=== PATIENT | female | born 1975 | race Hispanic/Latino ===

== ENCOUNTER 2019-02-11 05:09 | Emergency (ER) | payer OTHER ==
[2019-02-11 05:09] VITALS: BMI 23.1
[2019-02-11 05:37] VITALS: TEMP 97.3
--- NOTE | 2019-02-11 05:44 | ED PDOC ---
Arrival/HPI - General Chief Complaint: Lower Extremity Problem/Injury Time Seen by Provider: 02/11/19 05:13 Historian: Patient - History of Present Illness Narrative History of Present Illness (Text): 02/11/19 05:41 43 year old female, whose past medical history includes lumbar herniated disc, presents to the emergency complaining of discomfort to area of left lower leg. Patient is unsure if possibly may have injured her leg from past yoga excercises. Patient denies any blunt trauma or recent injury.Patient is able to ambulate without difficulty. Patient denies any fevers, chills, headache, dizziness, chest pain, shortness of breath,back pain, cough, diaphoresis, abdominal pain, nausea, vomiting, diarrhea, neck pain, or any other complaint. Time/Duration: Prior to Arrival Symptom Onset: Gradual Symptom Course: Unchanged Activities at Onset: Light Context: Home Past Medical History - Provider Review Nursing Documentation Reviewed: Yes - Infectious Disease Hx of Infectious Diseases: None - Tetanus Immunization Tetanus Immunization: Up to Date - Cardiac Hx Cardiac Disorders: No - Pulmonary Hx Respiratory Disorders: No - Neurological Hx Neurological Disorder: No - HEENT Other/Comment: uvitis. iritis - Renal Hx Renal Disorder: No - Endocrine/Metabolic Hx Endocrine Disorders: No - Hematological/Oncological Hx Blood Disorders: No - Integumentary Hx Cellulitis: Yes - Musculoskeletal/Rheumatological Hx Musculoskeletal Disorders: No - Gastrointestinal Hx Gastrointestinal Disorders: No - Genitourinary/Gynecological Hx Genitourinary Disorders: No - Psychiatric Hx Psychophysiologic Disorder: No Hx Substance Use: Yes - Surgical History Other/Comment: wisdom teeth extraction - Anesthesia Hx Anesthesia: Yes Hx Anesthesia Reactions: No Hx Malignant Hyperthermia: No Family/Social History - Physician Review Nursing Documentation Reviewed: Yes Family/Social History: No Known Family HX Smoking Status: Heavy Smoker > 10 Cigarettes Daily Hx Alcohol Use: No Hx Substance Use: Yes Substance used: [place] Allergies/Home Meds Allergies/Adverse Reactions: Allergies contact metal agent Allergy (Verified 02/11/19 05:21) URTICARIA strawberry Allergy (Verified 02/11/19 05:21) RASH Home Medications: Home Meds Medication Instructions Recorded Confirmed PrednisoLONE 1% [Pred Forte 1% 1 drop BOTHEYES DAILY 02/11/19 02/11/19 Opht Susp] Review of Systems - Physician Review All systems were reviewed & negative as marked: Yes - Review of Systems Constitutional: absent: Fevers, Night Sweats Respiratory: absent: SOB, Cough Cardiovascular: absent: Chest Pain Gastrointestinal: absent: Abdominal Pain, Diarrhea, Nausea, Vomiting Musculoskeletal: Arthralgias (Ankle pain). absent: Neck Pain Neurological: absent: Headache, Dizziness Physical Exam Vital Signs Reviewed: Yes Vital Signs Temp Pulse Resp BP Pulse Ox 02/11/19 05:36 97.3 F L 62 18 113/72 95 Temperature: Afebrile Blood Pressure: Normal Pulse: Regular Respiratory Rate: Normal Appearance: Positive for: Well-Appearing, Non-Toxic, Comfortable Pain Distress: None Mental Status: Positive for: Alert and Oriented X 3 - Systems Exam Neck: Present: Normal Range of Motion Respiratory/Chest: Present: Clear to Auscultation, Good Air Exchange. No: Respiratory Distress, Accessory Muscle Use Cardiovascular: Present: Regular Rate and Rhythm, Normal S1, S2. No: Murmurs Back: Present: Normal Inspection. No: Midline Tenderness Upper Extremity: Present: Normal Inspection. No: Cyanosis, Edema Lower Extremity: Present: Normal Inspection, Normal ROM, Tenderness (Tenderness to palpation medially area left lower leg slighty above ankle border), Ne urovascularly Intact. No: Edema, CALF TENDERNESS, Erythema, Deformity Neurological: Present: GCS=15, CN II-XII Intact, Speech Normal, Motor Func Grossly Intact, Normal Sensory Function Skin: Present: Warm, Dry, Normal Color. No: Rashes Psychiatric: Present: Alert, Oriented x 3, Normal Insight, Normal Concentration Medical Decision Making ED Course and Treatment: 02/11/19 05:47 Impression: 43 year old female presents with left ankle and leg pain. Plan: -- X-ray left ankle -- X-ray left Tib- Fib -- US Left lower extremity -- Reassess and disposition Prior Visits: Notes and results from previous visits were reviewed. Progress Notes: 02/11/19 07:05 Case endorsed to /pending labs/reassess/final disposition - RAD Interpretation Radiology Orders: 02/11/19 05:33 ANKLE LEFT 3 VIEWS ROUTINE [RAD] Stat 02/11/19 05:34 TIBIA FIBULA LEFT [RAD] Stat 02/11/19 05:35 DUPLEX LOWER EXTRM VEIN LEFT [US] Stat - Scribe Statement The provider has reviewed the documentation as recorded by the Amol Pérez Provider Scribe Attestation: All medical record entries made by the Amol were at my direction and personally dictated by me. I have reviewed the chart and agree that the record accurately reflects my personal performance of the history, physical exam, medical decision making, and the department course for this patient. I have also personally directed, reviewed, and agree with the discharge instructions and disposition. Disposition/Present on Arrival - Present on Arrival Any Indicators Present on Arrival: No History of DVT/PE: No History of Uncontrolled Diabetes: No History of Decub. Ulcer: No History Surgical Site Infection Following: None - Disposition Have Diagnosis and Disposition been Completed?: No Diagnosis: Leg pain, left Disposition Time: 07:00 Patient Problems: Current Active Problems Problem Status Onset Leg pain, left Acute Condition: STABLE Referrals: Lei Steven, [Primary Care Provider] - Follow up with primary Forms: [employer] (Chinese)
--- NOTE | 2019-02-11 07:18 | ED PDOC ---
Physical Exam Vital Signs Temp Pulse Resp BP Pulse Ox 02/11/19 05:36 97.3 F L 62 18 113/72 95 Medical Decision Making ED Course and Treatment: 02/11/19 07:18 Case endorsed to me by Dr. Snow pending labs, x-rays of ankle and Tib-fib, Duplex left LE US, and reassess/disposition. PROCEDURE: Radiographs of the left tibia and fibula. Dictator : Garrick Carter MD Report Date : 02/11/2019 08:11:48 IMPRESSION: Unremarkable radiographs of the left tibia and fibula. PROCEDURE: Left Ankle Radiographs. Dictator : Garrick Carter MD Report Date : 02/11/2019 08:04:01 IMPRESSION: Normal left ankle radiographs. Duplex Left LE Ultrasound Impression: negative for left DVT. PROCEDURE: CT Lumbar Spine without contrast Dictator : Ofelia Herrera MD Report Date : 02/11/2019 11:05:43 IMPRESSION: 1. No acute fracture, spondylolysis or spondylolisthesis. 2. Status post right hemilaminectomy at L4-5, desiccated disc with a diffuse posterior disc bulge without central spinal canal stenosis. Mild bilateral facet arthropathy contribute to severe neural foraminal narrowing. 3. At L5-S1 diffuse posterior disc bulge with broad-based central disc protrusion without central spinal canal stenosis. No neural foraminal narrowing. 4. Additional comments as described above. 02/11/19 11:20 On re-evaluation, patient feels better and is in no acute distress. I have discussed the results and plan with the patient, who expresses understanding. Patient in agreement with plan to be discharged home. Patient is stable for discharge. Patient was instructed to follow up with physician or return if symptoms worsen or new concerning symptoms arise. - RAD Interpretation Radiology Orders: 02/11/19 05:33 ANKLE LEFT 3 VIEWS ROUTINE [RAD] Stat 02/11/19 05:34 TIBIA FIBULA LEFT [RAD] Stat 02/11/19 05:35 DUPLEX LOWER EXTRM VEIN LEFT [US] Stat - Medication Orders Current Medication Orders: Discontinued Medications Tramadol HCl (Ultram) 50 mg PO STAT STA Stop: 02/11/19 05:54 Last Admin: 02/11/19 06:14 Dose: 50 mg MAR Pain Assessment Document 02/11/19 06:14 KV (Rec: 02/11/19 06:14 KV [id number]) Pain Reassessment Is this a pain reassessment? No Sleep Is patient sleeping during reassessment? No Presence of Pain Presence of Pain Yes Pain Scale Used Protocol: PSCALES Pain Scale Used Numeric Location Left, Right or Bilateral Left Upper or Lower Lower Pain Location Body Site Leg Description Description Constant Intensity of Pain at present 9 - Scribe Statement The provider has reviewed the documentation as recorded by the Amol Lopez Provider Scribe Attestation: All medical record entries made by the Scribe were at my direction and personally dictated by me. I have reviewed the chart and agree that the record accurately reflects my personal performance of the history, physical exam, medical decision making, and the department course for this patient. I have also personally directed, reviewed, and agree with the discharge instructions and disposition. Disposition/Present on Arrival - Present on Arrival Any Indicators Present on Arrival: No History of DVT/PE: No History of Uncontrolled Diabetes: No Urinary Catheter: No History of Decub. Ulcer: No History Surgical Site Infection Following: None - Disposition Have Diagnosis and Disposition been Completed?: Yes Diagnosis: Leg pain, left Disposition: HOME/ ROUTINE Disposition Time: 11:00 Condition: IMPROVED Discharge Instructions (ExitCare): Muscle and Bone Pain (DC) Additional Instructions: AZAM REDMOND, thank you for letting us take care of you today. The emergency medical care you received today was directed at your acute symptoms. If you were prescribed any medication, please fill it and take as directed. It may take several days for your symptoms to resolve. Return to the Emergency Department if your symptoms worsen, do not improve, or if you have any other problems. Please contact your doctor or call one of the physicians/clinics you have been referred to that are listed on the Patient Visit Information form that is included in your discharge packet. Bring any paperwork you were given at discharge with you along with any medications you are taking to your follow up visit. Our treatment cannot replace ongoing medical care by a primary care provider outside of the emergency department. Thank you for allowing the [facility] team to be part of your care today. Follow up with Dr. Steven this week for re-evaluation and further management. Prescriptions: traMADol [Ultram] 50 mg PO Q8 PRN #15 tab PRN Reason: Pain, Severe (8-10) Referrals: Lei Steven, [Primary Care Provider] - Follow up with primary Forms: [employer] (Maori)
[2019-02-11 07:57] LABS: HEMOGLOBIN 12.2 g/dL (12.0-16.0); MEAN CELL VOLUME 87.1 fl (80.0-105.0); MEAN CORPUSCULAR HEMOGLOBIN 27.7 pg (25.0-35.0); MEAN CORPUSCULAR HGB CONC 31.8 g/dl (31.0-37.0); MEAN PLATELET VOLUME 10.3 fl (7.0-11.0); RBC 4.41 10^6/uL (3.5-6.1); RED CELL DISTRIBUTION WIDTH 13.6 % (11.5-14.5)
--- NOTE | 2019-02-11 08:07 | RAD ---
Date of service: 02/11/2019 PROCEDURE: Left Ankle Radiographs. HISTORY: pain?injury COMPARISON: None available. TECHNIQUE: 3 views obtained. FINDINGS: BONES: Normal. No fracture. JOINTS: Normal. No osteoarthritis. Ankle mortise maintained. Talar dome intact SOFT TISSUES: Normal. OTHER FINDINGS: None. IMPRESSION: Normal left ankle radiographs.
[2019-02-11 08:12] LABS: ALB/GLOB RATIO 1.1 (1.1-1.8); ALBUMIN 3.9 g/dL (3.0-4.8); ALT/SGPT 10 U/L (7-56); AST/SGOT 29 U/L (14-36); BLOOD UREA NITROGEN 12 mg/dL (7-21); CALCIUM 9.2 mg/dL (8.4-10.5); GFR NON-AFRICAN AMERICAN > 60; URIC ACID 2.9 mg/dL (2.5-6.2)
--- NOTE | 2019-02-11 08:15 | RAD ---
Date of service: 02/11/2019 PROCEDURE: Radiographs of the left tibia and fibula. HISTORY: pain?injury COMPARISON: None available. TECHNIQUE: Frontal and lateral views obtained. FINDINGS: BONES: No fracture or destructive lesion. JOINT SPACES: Unremarkable. OTHER FINDINGS: None. IMPRESSION: Unremarkable radiographs of the left tibia and fibula.
[2019-02-11 10:38] VITALS: RESP 18
--- NOTE | 2019-02-11 10:40 | US ---
PROCEDURE: Left lower extremity venous US HISTORY: Leg pain and swelling. Evaluate for DVT. PHYSICIAN(S): Samy Wheeler MD. TECHNIQUE: Duplex sonography and color-flow Doppler with graded compression were used to evaluate the deep venous system of the left lower extremity. FINDINGS: The visualized deep venous system of the left lower extremity is sonographically normal and compressible. Normal wave forms and augmentation are seen. There is no sonographic evidence for deep venous thrombosis in the visualized segments of the left lower extremity. IMPRESSION: 1. No sonographic evidence for deep venous thrombosis in the visualized segments of the left lower extremity.
--- NOTE | 2019-02-11 11:09 | CT ---
Date of service: 02/11/2019 PROCEDURE: CT Lumbar Spine without contrast HISTORY: Low back pain with left radiculopathy COMPARISON: None available. TECHNIQUE: Axial computed tomography images were obtained of the lumbar spine without the use of intravenous contrast. Coronal and sagittal reformatted images were created and reviewed. Radiation dose: Total exam DLP = 891.49 mGy-cm. This CT exam was performed using one or more of the following dose reduction techniques: Automated exposure control, adjustment of the mA and/or kV according to patient size, and/or use of iterative reconstruction technique. FINDINGS: VERTEBRAE: Is normal alignment of the lumbar vertebral bodies there is normal lumbar lordosis there is no acute fracture spondylolysis or spondylolisthesis. There is mild diffuse bone demineralization. DISCS/SPINAL CANAL/NEURAL FORAMINA: Evaluation of the discs and spinal canal is limited on noncontrast CT examination. Allowing for this, L1-2: No large disc herniation neural foraminal or spinal canal stenosis. L2-3: Mild posterior disc bulge and ligamentum flavum infolding without central spinal canal stenosis. Mild bilateral facet arthropathy contribute to moderate neural foraminal narrowing worse on the right. L3-4: Diffuse posterior disc bulge without central spinal canal stenosis. Mild bilateral facet arthropathy contribute to mild neural foraminal narrowing. L4-5: Desiccated disc with vacuum phenomenon. Postsurgical changes of right hemilaminectomy. There is a diffuse posterior disc bulge which indents the ventral thecal sac without spinal canal stenosis. Mild bilateral facet arthropathy contribute to severe neural foraminal narrowing. L5-S1: Diffuse posterior disc bulge with broad-based central disc protrusion without central spinal canal stenosis. No neural foraminal narrowing. PARASPINAL SOFT TISSUES: The paraspinous soft tissues are normal. OTHER FINDINGS: There is a 4 mm nonobstructing stone in the lower pole of the left kidney. IMPRESSION: 1. No acute fracture, spondylolysis or spondylolisthesis. 2. Status post right hemilaminectomy at L4-5, desiccated disc with a diffuse posterior disc bulge without central spinal canal stenosis. Mild bilateral facet arthropathy contribute to severe neural foraminal narrowing. 3. At L5-S1 diffuse posterior disc bulge with broad-based central disc protrusion without central spinal canal stenosis. No neural foraminal narrowing. 4. Additional comments as described above.
[2019-02-11 11:38] VITALS: BP 112/74; PULSE 78; O2SAT 98
== END 2019-02-11 11:38 | disposition home or self-care (01) ==
LOC: ED 05:09
DX: M79.605 Pain in left leg (principal); F17.210 Nicotine dependence, cigarettes, uncomplicated

== ENCOUNTER 2019-03-24 11:49 | Emergency (ER) | payer OTHER ==
[2019-03-24 11:59] VITALS: BMI 30.5
[2019-03-24 12:02] VITALS: BP 115/67; PULSE 85; RESP 18; TEMP 98.3; O2SAT 95
--- NOTE | 2019-03-24 12:32 | ED PDOC ---
Arrival/HPI - General Chief Complaint: Lower Extremity Problem/Injury Time Seen by Provider: 03/24/19 11:52 Historian: Patient - History of Present Illness Narrative History of Present Illness (Text): 43 year old female with PMH of depression presents to the ED c/o left lower extremity pain x 2 months. Patient states the pain is sharp located primarily to her medial left ankle and lower leg that worsens today with associated erythema, swelling, and warm. Has been taking Tramadol without relief. She has received multiple imaging studies from her orthopedic doctor Dr. Blevins including MRI of the left ankle performed on March 18. MRI revealed thrombophlebitis and ankle sprain. Patient called her primary doctor Dr. Steven this morning who recommended she come to the emergency department for evaluation. Patient is able to bear weight and ambulate on the extremity although with pain. Denies fever, chills, numbness, paresthesias, weakness, open wounds, nausea, vomiting, dizziness, pain elsewhere, headache, chest pain, shortness of breath, or any other associated symptoms. Past Medical History - Provider Review Nursing Documentation Reviewed: Yes Primary Care Provider: Lei Steven - Infectious Disease Hx of Infectious Diseases: None - Tetanus Immunization Tetanus Immunization: Up to Date - Cardiac Hx Cardiac Disorders: No - Pulmonary Hx Respiratory Disorders: No - Neurological Hx Neurological Disorder: No - HEENT Other/Comment: uvitis. iritis - Renal Hx Renal Disorder: No - Endocrine/Metabolic Hx Endocrine Disorders: No - Hematological/Oncological Hx Blood Disorders: No - Integumentary Hx Cellulitis: Yes - Musculoskeletal/Rheumatological Hx Musculoskeletal Disorders: No - Gastrointestinal Hx Gastrointestinal Disorders: No - Genitourinary/Gynecological Hx Genitourinary Disorders: No - Psychiatric Hx Psychophysiologic Disorder: No Hx Substance Use: Yes - Surgical History Other/Comment: wisdom teeth extraction - Anesthesia Hx Anesthesia: Yes Hx Anesthesia Reactions: No Hx Malignant Hyperthermia: No Family/Social History - Physician Review Nursing Documentation Reviewed: Yes Family/Social History: No Known Family HX Smoking Status: Heavy Smoker > 10 Cigarettes Daily Hx Alcohol Use: No Hx Substance Use: Yes Substance used: Marijuana Allergies/Home Meds Allergies/Adverse Reactions: Allergies contact metal agent Allergy (Verified 03/24/19 11:59) URTICARIA strawberry Allergy (Verified 03/24/19 11:59) RASH Home Medications: Home Meds Medication Instructions Recorded Confirmed PrednisoLONE 1% [Pred Forte 1% 1 drop BOTHEYES DAILY 02/11/19 03/24/19 Opht Susp] Review of Systems - Review of Systems Constitutional: Normal. absent: Fevers Eyes: Normal. absent: Vision Changes Respiratory: Normal. absent: SOB, Cough Cardiovascular: Normal. absent: Chest Pain, Palpitations Gastrointestinal: Normal. absent: Abdominal Pain, Nausea, Vomiting Genitourinary Female: Normal. absent: Dysuria, Frequency Musculoskeletal: Other (left ankle pain and swelling) Skin: Cellulitis (left ankle/distal lower leg) Neurological: Normal. absent: Headache, Dizziness Physical Exam Vital Signs Reviewed: Yes Vital Signs Temp Pulse Resp BP Pulse Ox 03/24/19 12:01 98.3 F 85 18 115/67 95 Temperature: Afebrile Blood Pressure: Normal Pulse: Regular Respiratory Rate: Normal Appearance: Positive for: Well-Appearing, Non-Toxic, Uncomfortable Pain Distress: Mild Mental Status: Positive for: Alert and Oriented X 3 - Systems Exam Head: Present: Atraumatic, Normocephalic Pupils: Present: PERRL Extroacular Muscles: Present: EOMI Conjunctiva: Present: Normal Mouth: Present: Moist Mucous Membranes Neck: Present: Normal Range of Motion Respiratory/Chest: Present: Clear to Auscultation, Good Air Exchange. No: Respiratory Distress, Accessory Muscle Use Cardiovascular: Present: Regular Rate and Rhythm, Normal S1, S2, Peripheal Pulses Present Upper Extremity: Present: Normal Inspection, Normal ROM, NORMAL PULSES, Neurovascularly Intact, Capillary Refill < 2s. No: Cyanosis, Edema, Temperature Abnormalties Lower Extremity: Present: Normal Inspection, NORMAL PULSES, Normal ROM, Tenderness (mild to medial ankle and distal lower leg), Swelling (mild to medial left ankle), Erythema (mild increased warmth to medial left ankle and distal lower leg), Temperature Abnormalties (mild increased warmth to medial left ankle and distal lower leg), Neurovascularly Intact, Capillary Refill < 2 s. No: Edema, CALF TENDERNESS, Deformity Neurological: Present: GCS=15, CN II-XII Intact, Speech Normal, Motor Func Grossly Intact, Normal Sensory Function, Gait Normal Skin: Present: Warm, Dry, Normal Color. No: Rashes Psychiatric: Present: Alert, Oriented x 3, Normal Insight, Normal Concentration, Normal Affect, Normal Mood Medical Decision Making ED Course and Treatment: 03/24/19 13:43 MRI Left Ankle 03/18/19 - The medial subcutaneous tissues reveal a vein with central T2 hyperintensity surrounding inflammatory changes. This finding may indicate thrombophlebitis. Please correlate clinically. The thinned anterior talofibular ligament suggest prior sprain or tear. There is a mild sprain of the calcaneofibular ligament and posterior tibiotalar ligament The remaining lateral ligaments are intact. Intact tendons. MRI Lumbar Spine 03/07/19 - Postsurgical changes from right laminectomy and diskectomy at L4-5. There is again soft tissue in the left ventral dural space largely representing granulation tissue surrounding the descending left L5 nerve root. There is no change in the left foraminal disk material with impingement upon the exiting left L4 nerve roott. Slight increase in size of right paracentral disk protrusion at L3-4, which contacts the descending right L4 nerve root No change in small left paracentral disk protrusion at L2-3 03/24/19 14:39 Prelim US read negative for DVT 03/24/19 14:56 Spoke with Maurizio, recommends discharge home with PO antibiotics Disposition/Present on Arrival - Present on Arrival Any Indicators Present on Arrival: No History of DVT/PE: No History of Uncontrolled Diabetes: No Urinary Catheter: No History of Decub. Ulcer: No History Surgical Site Infection Following: None - Disposition Have Diagnosis and Disposition been Completed?: Yes Diagnosis: Cellulitis, Ankle pain Disposition: HOME/ ROUTINE Disposition Time: 14:30 Patient Plan: Discharge Condition: GOOD Discharge Instructions (ExitCare): Cellulitis (ED) Additional Instructions: Keflex every 6 hours for 1 week Bactrim every 12 hours for 1 week Ibuprofen every 8 hours as needed for pain, take with food Keep ankle compressed, elevated Rest left ankle, use crutches and weigh bear as tolerated Increase fluids Followup with primary doctor tomorrow as scheduled Followup with orthopedic within two days Return to ER with any new/worsening symptoms Prescriptions: Cephalexin [Keflex] 500 mg PO QID 7 Days #28 capsule Sulfamethoxazole/Trimethoprim [Bactrim DS 800 mg-160 mg] 1 tab PO Q12 #14 tab Referrals: Sung Blevins MD [Staff Provider] - Follow up with primary Lei Steven DO [Primary Care Provider] - Follow up with primary Forms: [employer] ([place]), WORK NOTE
[2019-03-24 13:38] LABS: BASO # 0.01 K/mm3 (0.0-2.0); BASO % 0.2 % (0.0-3.0); EOS # 0.1 (0.0-0.7); EOS % 1.9 % (1.5-5.0); HEMOGLOBIN 13.3 g/dL (12.0-16.0); LYMPH # 1.8 (1.2-3.4); LYMPH % 29.8 % (22.0-35.0); MEAN CELL VOLUME 84.5 fl (80.0-105.0); MEAN CORPUSCULAR HEMOGLOBIN 27.9 pg (25.0-35.0); MEAN CORPUSCULAR HGB CONC 33.1 g/dl (31.0-37.0); MEAN PLATELET VOLUME 10.4 fl (7.0-11.0); MONO # 0.5 (0.1-0.6); MONO % 7.8 % (1.0-6.0); RBC 4.76 10^6/uL (3.5-6.1); RED CELL DISTRIBUTION WIDTH 13.5 % (11.5-14.5); WHITE BLOOD COUNT 6.2 10^3/uL (4.5-11.0)
[2019-03-24 13:46] LABS: ALB/GLOB RATIO 1.3 (1.1-1.8); ALBUMIN 4.1 g/dL (3.0-4.8); ALT/SGPT 10 U/L (7-56); AST/SGOT 24 U/L (14-36); BLOOD UREA NITROGEN 9 mg/dL (7-21); CALCIUM 9.4 mg/dL (8.4-10.5); GFR NON-AFRICAN AMERICAN > 60
[2019-03-24 13:47] LABS: INR 1.14; PARTIAL THROMBOPLASTIN TIME 33.9 Seconds (26.9-38.3); PROTHROMBIN TIME 12.9 SECONDS (9.4-12.5)
[2019-03-24] MEDS ORDERED: Tmp-Smz 800 mg-160 mg DS Tab PO STA (14:54)
== END 2019-03-24 15:12 | disposition home or self-care (01) ==
LOC: ED 11:49
DX: M25.572 Pain in left ankle and joints of left foot (principal); L03.116 Cellulitis of left lower limb; F17.210 Nicotine dependence, cigarettes, uncomplicated
CPT/HCPCS: 80053; 81025; 85025; 85610; 85730; 93971; 96374; 99284; J1885